=== PATIENT | male | born 1990 | race Caucasian/White ===

== ENCOUNTER 2021-10-22 19:08 | Emergency (ER) | payer SELFPAY ==
[2021-10-22 19:17] VITALS: BP 142/70; PULSE 84; RESP 18; TEMP 36.9; O2SAT 95
[2021-10-22 20:28] LABS: ALT 44 U/L (16-63); AST 18 U/L (15-37); Albumin 4.4 g/dL (3.4-5.0); Alkaline Phosphatase 78 U/L (46-116); Anion Gap 13.6 mmol/L (3-11); BUN 11 mg/dL (7-18); Bilirubin, Total 0.4 mg/dL (0.2-1.0); CO2 22.4 mmol/L (21.0-32.0); CREATININE 0.9 mg/dL (0.70-1.30); Calcium 9.4 mg/dL (8.5-10.1); Chloride 104 mmol/L (98-107); ETHANOL BLOOD 28.9 mg/dL (<10); Glucose 87 mg/dL (74-106); Potassium 3.6 mmol/L (3.5-5.1); Sodium 140 mmol/L (136-145); Total Protein 8.2 g/dL (6.4-8.2)
[2021-10-22 20:31] LABS: Abs Immature Grans 0.02 10^3/uL (0.0-0.06); Absolute Basophil Count 0.03 10^3/uL (0.0-0.2); Absolute Eosinophil Count 0.11 10^3/uL (0.0-0.7); Absolute Lymphocyte Count 2.12 10^3/uL (1.2-3.4); Absolute Monocyte Count 0.49 10^3/uL (0.1-0.8); Absolute Neutrophil Count 6.01 10^3/uL (1.2-6.7); Basophils % 0.3; Eosinophils % 1.3; HCT 45.5 % (40.0-50.0); HGB 15.5 g/dL (13.5-17.5); Immature Grans % 0.2; Lymphocytes % 24.1; MCH 29.4 pg (27.0-33.0); MCHC 34.1 % (32.0-36.0); MCV 86 fL (80-95); Monocytes % 5.6; Neutrophils % 68.5; Platelet Count 281 10^3/uL (130-400); RBC 5.28 10^6/uL (4.36-5.78); RDW 12.8 % (11.8-14.1); RDW-SD 39.8 fL; WBC 8.78 10^3/uL (4.4-10.8)
[2021-10-22 20:46] LABS: *AMPHETAMINES SCREEN URINE Negative (Negative); *BARBITURATES SCREEN URINE Negative (Negative); *BENZODIAZEPINES SCREEN URINE Negative (Negative); Cannabinoids THC Negative (Negative); Cocaine Screen,Urine Negative (Negative); METHADONE URINE SCREEN Negative (Negative); OPIATES URINE SCREEN Negative (Negative)
[2021-10-22 20:51] LABS: Tricyclic Antidepressants Negative (Negative)
[2021-10-22 21:25] LABS: Salicylate < 2.8 mg/dL (<2.8)
[2021-10-22 21:26] LABS: Acetaminophen < 2 ug/mL (10-30)
--- NOTE | 2021-10-22 23:26 | ED.GENADUL_ITS ---
Discharge Plan Disposition Patient Disposition: HOME Condition: Stable Discharge Details Clinical Impression: Depression Primary Care Provider: None,None ED Provider: Boogie Urbina Discharge Instructions Instructions: Depression (ED) Additional Instructions: As per safety plan which you have agreed to, firearms are to remain secured in your home until cleared by a psychiatrist. Please follow-up with [facility] services. Please contact your primary care physician to arrange follow-up. Return to the ER immediately for any worsening or new concerning symptoms. You can always return to the emergency department if you are feeling unsafe and need a safe place to go. Referrals: [facility] [Outside] Discharge Data Discharge Date/Time-TO BE ENTERED AT DEPARTURE: 10/23/21 13:19 Medical Decision Making <FARA Hines - Last Filed: 10/23/21 09:06> Patient is presenting on EEE, he is calm, cooperative, alert, oriented, pleasant in demeanor Family concerning factors are that patient is clearly expressing suicidal ideation last evening and he is not being forthcoming with the [facility] clinician Joi feels patient would benefit from a second certification by psychiatrist, this will be performed and he will be maintained on EEG at this time Patient is agreeable to this plan, he has been calm and cooperative throughout the assessment His diagnostic labs do not show acute abnormality aside from an alcohol level of 28, he is fully alert, oriented, of decisional capacity, he will be maintained on ED until he has formal psychiatric evaluation He will be transition care to my attending physician, Dr. Reyes at time of my departure Gap is mildly elevated, will encourage fluid hydration Medical Records Medical records reviewed: Yes I reviewed the patient's medical records. Lab Data Lab results reviewed: Yes I reviewed the patient's lab results. HPI <FARA Hines - Last Filed: 10/23/21 09:06> General Date/Time Provider Initiated Documentation: 10/22/21 19:28 . HPI Narrative: This 31-year-old gentleman who is otherwise healthy presents for report of suicidal ideation. He reportedly got into an argument with his ex partner and was frustrated, running into the garage and making threatening statements about taking his life. He subsequently made mention that he wrote suicide notes for his children. His ex partner left the home and called the police who presents to the patient's residence and noted a gun in the doorway. Patient made comment that he had numerous other guns and that he did not need that done. He refused because he is in the past and stated that he was going to bed. Please left the scene and were able to transport the patient to the emergency department at time of reassessment. Patient is declining any suicidal ideation or attempts to harm self. He is denying any homicidal ideation, auditory visual hallucinations. He denies regular alcohol consumption, tobacco use, or any illicit drug use. He does not take any medications on a regular basis. He denies any prior hospitalizations. He denies auditory visualizations. Related Data Allergies Allergy/AdvReac Type Severity Reaction Status Date / Time No Known Allergies Allergy Unverified 10/22/21 19:25 General Stated Complaint: PsychEval JACKI: 2 Review of Systems <FARA Hines - Last Filed: 10/23/21 09:06> All systems reviewed & are unremarkable except as noted in HPI and below PFSH <FARA Hines - Last Filed: 10/23/21 09:06> All Active Problems (Updated 10/23/21 @ 12:21 by Boogie Urbina MD) Depression (Chronic) Social History Smoking/Tobacco Use Status: Never Smoking risk assessment performed?: Yes Exam <FARA Hines - Last Filed: 10/23/21 09:06> Const General: cooperative, comfortable and no acute distress Orientation: alert and oriented x3 Eyes Sclera: sclerae normal Pupils: PERRL Resp Effort & Inspection: normal respiratory effort Auscultation: clear to auscultation bilaterally Cardio Rate: regular rate Rhythm: regular rhythm Skin General skin exam: no rashes or lesions noted Neuro General: patient alert and patient oriented x3 Cranial Nerves: CN's II-XI intact bilaterally Extrem General: normal to inspection Psych Appearance: grossly normal and well kempt Mental Status: mental status grossly normal Speech and Movement: speech and movement normal Affect: normal affect Attitude: cooperative Course <FARA Hines - Last Filed: 10/23/21 09:06> Vital Signs Vital signs: Vital Signs Temperature 36.9 C 10/22/21 19:17 Pulse 84 10/22/21 19:17 Respiratory Rate 18 10/22/21 19:17 Blood Pressure 142/70 H 10/22/21 19:17 Pulse Oximetry 95 05/12/22 19:17 Temperature 36.9 C 10/22/21 19:17 Temperature Source Oral 10/22/21 19:17 Pulse 84 10/22/21 19:17 Respiratory Rate 18 10/22/21 19:17 Respiratory Effort 10/22/21 19:26 Blood Pressure 142/70 H 10/22/21 19:17 Blood Pressure Position Sitting 10/22/21 19:17 Pulse Oximetry 95 10/22/21 19:17 Oxygen Delivery Method Room Air 10/22/21 19:17 Oxygen Flow Rate 0 10/22/21 19:17 Pain Level 0 10/22/21 19:17 Lab/Test Results Lab/Test Results: Laboratory Tests Range/Units 10/22/21 10/22/21 10/22/21 20:00 20:00 20:00 WBC (4.4-10.8) 10^3/uL 8.78 RBC (4.36-5.78) 10^6/uL 5.28 Hgb (13.5-17.5) g/dL 15.5 Hct (40.0-50.0) % 45.5 MCV (80-95) fL 86 MCH (27.0-33.0) pg 29.4 MCHC (32.0-36.0) % 34.1 RDW (11.8-14.1) % 12.8 Plt Count (130-400) 10^3/uL 281 MPV (8.0-11.0) fL 10.0 Immature Gran % 0.2 Neutrophils % 68.5 Lymphocytes % 24.1 Monocytes % 5.6 Eosinophils % 1.3 Basophils % 0.3 Nucleated RBC % (0.0-0.3) % 0.0 Absolute Neutrophils (1.2-6.7) 10^3/uL 6.01 Absolute Lymphocytes (1.2-3.4) 10^3/uL 2.12 Absolute Monocytes (0.1-0.8) 10^3/uL 0.49 Absolute Eosinophils (0.0-0.7) 10^3/uL 0.11 Absolute Basophils (0.0-0.2) 10^3/uL 0.03 Sodium (136-145) mmol/L 140 Potassium (3.5-5.1) mmol/L 3.6 Chloride (98-107) mmol/L 104 Carbon Dioxide (21.0-32.0) mmol/L 22.4 Anion Gap (3-11) mmol/L 13.6 H BUN (7-18) mg/dL 11 Creatinine (0.70-1.30) mg/dL 0.9 Estimated GFR/1.73 m2 (mL/min/1.73m2) >= 60.00 Glucose (74-106) mg/dL 87 Calcium (8.5-10.1) mg/dL 9.4 Total Bilirubin (0.2-1.0) mg/dL 0.4 AST (15-37) U/L 18 ALT (16-63) U/L 44 Alkaline Phosphatase (46-116) U/L 78 Total Protein (6.4-8.2) g/dL 8.2 Albumin (3.4-5.0) g/dL 4.4 Salicylates (<2.8) mg/dL Urine Opiates Screen (Negative) Negative Urine Methadone Screen (Negative) Negative Acetaminophen (10-30) ug/mL Ur Barbiturates Screen (Negative) Negative Ur Tricyclics Screen (Negative) Negative Ur Amphetamines Screen (Negative) Negative U Benzodiazepines Scrn (Negative) Negative Urine Cocaine Screen (Negative) Negative Ur THC Screen (Negative) Negative Ethyl Alcohol (<10) mg/dL 28.9 H Range/Units 10/22/21 20:42 WBC (4.4-10.8) 10^3/uL RBC (4.36-5.78) 10^6/uL Hgb (13.5-17.5) g/dL Hct (40.0-50.0) % MCV (80-95) fL MCH (27.0-33.0) pg MCHC (32.0-36.0) % RDW (11.8-14.1) % Plt Count (130-400) 10^3/uL MPV (8.0-11.0) fL Immature Gran % Neutrophils % Lymphocytes % Monocytes % Eosinophils % Basophils % Nucleated RBC % (0.0-0.3) % Absolute Neutrophils (1.2-6.7) 10^3/uL Absolute Lymphocytes (1.2-3.4) 10^3/uL Absolute Monocytes (0.1-0.8) 10^3/uL Absolute Eosinophils (0.0-0.7) 10^3/uL Absolute Basophils (0.0-0.2) 10^3/uL Sodium (136-145) mmol/L Potassium (3.5-5.1) mmol/L Chloride (98-107) mmol/L Carbon Dioxide (21.0-32.0) mmol/L Anion Gap (3-11) mmol/L BUN (7-18) mg/dL Creatinine (0.70-1.30) mg/dL Estimated GFR/1.73 m2 (mL/min/1.73m2) Glucose (74-106) mg/dL Calcium (8.5-10.1) mg/dL Total Bilirubin (0.2-1.0) mg/dL AST (15-37) U/L ALT (16-63) U/L Alkaline Phosphatase (46-116) U/L Total Protein (6.4-8.2) g/dL Albumin (3.4-5.0) g/dL Salicylates (<2.8) mg/dL < 2.8 Urine Opiates Screen (Negative) Urine Methadone Screen (Negative) Acetaminophen (10-30) ug/mL < 2 Ur Barbiturates Screen (Negative) Ur Tricyclics Screen (Negative) Ur Amphetamines Screen (Negative) U Benzodiazepines Scrn (Negative) Urine Cocaine Screen (Negative) Ur THC Screen (Negative) Ethyl Alcohol (<10) mg/dL Sign Out <FARA Hines - Last Filed: 10/23/21 09:06> Sign Out Data: Sign Out Comment: signed out to Dr Cai at 1300 pending second cert EE Last updated by Shannan Beckett PA at 10/23/21 01:08 Sign Out Comment: pending 2nd certification Last updated by Jimmy Cai MD at 10/23/21 07:40 PAWSS <FARA Hines - Last Filed: 10/23/21 09:06> Have you Been Recently Intoxicated or Drunk Within the Last 30 days?: Yes Have you Ever Experienced Previous Episodes of Alcohol Withdrawal?: No Have you ever Experienced Withdrawal Seizures?: No Have you ever Experienced Delirium Tremens(DT)s?: No Have you ever undergone Alcohol Rehabilitation Treatment (i.e, inpt ot outpatient treatment programs)?: No Have you ever Experienced Blackouts?: No Have you ever Combined Alcohol with other Downers within the last 90 days?: No Have you ever Combined Alcohol with any other Substance of Abuse during the last 90 days?: No Positive Blood Alcohol level on Presentation? [PCS.BAL]: No Evidence of Increased Autonomic Activity (i.e. HR>120, tremor, sweating, agitation, nausea)?: No Result: 1 <Boogie Urbina MD - Last Filed: 10/26/21 12:46> Result: 1
--- NOTE | 2021-10-23 06:54 | NUR.NOTE ---
Patient slept comfortably overnight. Will COVID swab when awake. Report given to oncoming nurse Pauline. root
[2021-10-23 08:04] VITALS: BP 150/87; PULSE 107; RESP 18; TEMP 36.5; O2SAT 98
[2021-10-23 08:44] LABS: Source Nasal/Nares
[2021-10-23 09:35] LABS: COVID-19 PCR Negative (Negative)
--- NOTE | 2021-10-23 11:10 | CMSP_ITS ---
- If Service Date Differs Date of service: 10/23/21 Time of Service: 11:10 Care Management Safety Plan Status: Involuntary - Reason for Wait Reason for Wait: Inpatient Admission INVOLUNTARY FOR INPATIENT PSYCHIATRIC STABILIZATION. A huddle is done at 11:[address] Urbina, ED provider, Angelina, nursing janitorial services supervisor, Tamiko, charge nurse, and RACHEL Larry, in attendance. Safety plan has been established to meet the needs of the patient, and consideration of the care team, to adhere to patient goals, identify restrictions based on behavioral status, address nutrition, and determine allo wed personal belongings, tools for hygiene and personal care. Determine level of activity including ambulation, level of supervision, visitors, and determine privileges based on behaviors and level of engagement by pt. SAFETY PLAN: 1. Will remain on SI/HI precautions. In Paper Clothes 2. Will remain in room under direct supervision of one-on-one staff at all times provided by CPSO, ROLF, GLASS PROCESSING WORKER hot wort settler. 3. May have paper cups, plates, finger foods as well as a cardboard spoon with which to eat meals. 4. Follow [facility] Management of the Admitted Behavioral Health Patient policy. 5. Shower with escort and at RN discretion. 6. No personal belongings. 7. Visitors: Per [facility] visitor policy and at RN discretion. 8. Activities: Soft cart items, music tablet, television, and other activities at RN discretion. 9. Bathroom privileges with escort while in the ED. 10. Phone: May use [employer] hospital phone at RN discretion. 11. Due to INVOLUNTARY status, patient is being held at [facility] by the Department of Mental Health ([facility]) until 2nd certification by [facility] Psychiatrist can be performed (within 24 hours). Staff will provide de-escalation support (CPI) as needed. If patient wishes to leave [facility], staff will contact [facility] Crisis Screener ([phone]) and On-Call Chef Broiler Or Fry ([phone]) as soon as possible. In the event of elopement, notify [place] [employer] Police ([phone]). Patient is currently involuntarily at [facility]. [facility] Frontline Blanking Press Operator will continue seeking placement. Please contact the Eyewear Manufacturing Supervisor Chef Broiler Or Fry ([phone]) for any needed changes to Safety Plan. Safety plan has been provided to interdepartmental care team. Patient will be transported by brown sourer at time of discharge.
--- NOTE | 2021-10-23 11:10 | PDOC.CMSAFED ---
- If Service Date Differs Date of service: 10/23/21 Time of Service: 11:10 Care Management Safety Plan Status: Involuntary - Reason for Wait Reason for Wait: Inpatient Admission INVOLUNTARY FOR INPATIENT PSYCHIATRIC STABILIZATION. A huddle is done at 11:[address] Urbina, ED provider, Angelina, nursing millwright supervisor, Tamiko, charge nurse, and RACHEL Larry, in attendance. Safety plan has been established to meet the needs of the patient, and consideration of the care team, to adhere to patient goals, identify restrictions based on behavioral status, address nutrition, and determine allowed personal belongings, tools for hygiene and personal care. Determine level of activity including ambulation, level of supervision, visitors, and determine privileges based on behaviors and level of engagement by pt. SAFETY PLAN: 1. Will remain on SI/HI precautions. In Paper Clothes 2. Will remain in room under direct supervision of one-on-one staff at all times provided by CPSO, ROLF, RADIOLOGY MANAGER administrative operations coordinator. 3. May have paper cups, plates, finger foods as well as a cardboard spoon with which to eat meals. 4. Follow [facility] Management of the Admitted Behavioral Health Patient policy. 5. Shower with escort and at RN discretion. 6. No personal belongings. 7. Visitors: Per [facility] visitor policy and at RN discretion. 8. Activities: Soft cart items, music tablet, television, and other activities at RN discretion. 9. Bathroom privileges with escort while in the ED. 10. Phone: May use [employer] hospital phone at RN discretion. 11. Due to INVOLUNTARY status, patient is being held at [facility] by the Department of Mental Health ([facility]) until 2nd certification by [facility] Psychiatrist can be performed (within 24 hours). Staff will provide de-escalation support (CPI) as needed. If patient wishes to leave [facility], staff will contact [facility] Crisis Screener ([phone]) and On-Call Five Roll Refiner Batch Mixer ([phone]) as soon as possible. In the event of elopement, notify [place] [employer] Police ([phone]). Patient is currently involuntarily at [facility]. [facility] Frontline Chaplain Resident will continue seeking placement. Please contact the Water Hydrant Installer Five Roll Refiner Batch Mixer ([phone]) for any needed changes to Safety Plan. Safety plan has been provided to interdepartmental care team. Patient will be transported by cemetery manager at time of discharge.
--- NOTE | 2021-10-23 12:19 | ED.PROG_ITS ---
Date of service: 10/23/21 Time of Service: 08:00 Medical Decision Making Patient was seen by [facility] crisis screener and felt to be safe for discharge with outpatient follow-up and a safety plan to include patient's friend securing firearms at home. I spoke with the patient -he requests discharge. He is not suicidal on my assessment. I spoke with the patient's friend who has come to the emergency department and agrees to go home with the patient and secure firearms. Both the patient and his friend understand patient should not have access to firearms until cleared by criminal research specialist. I reviewed with the patient that he can always return to the emerge apartment should he be feeling unsafe and I recommended that he follow-up with a primary care physician and [facility]. I have asked care management to assist in arranging outpatient follow-up. Sign Out Sign Out Data: Sign Out Comment: signed out to Dr Cai at 1300 pending second cert EE Last updated by Shannan Beckett PA at 10/23/21 01:08 Sign Out Comment: pending 2nd certification Last updated by Jimmy Cai MD at 10/23/21 07:40 Discharge Plan Disposition Patient Disposition: HOME Condition: Stable Discharge Details Clinical Impression: Depression Primary Care Provider: None,None ED Provider: Boogie Urbina Discharge Instructions Instructions: Depression (ED) Additional Instructions: As per safety plan which you have agreed to, firearms are to remain secured in your home until cleared by a psychiatrist. Please follow-up with [facility] services. Please contact your primary care physician to arrange follow-up. Return to the ER immediately for any worsening or new concerning symptoms. You can always return to the emergency department if you are feeling unsafe and need a safe place to go. [facility] Discharge Data Discharge Date/Time-TO BE ENTERED AT DEPARTURE: 10/23/21 13:19
--- NOTE | 2021-10-23 12:24 | NUR.NOTE ---
Nursing Note: PT INFO GIVEN TO CARE MANAGEMENT TO ESTABLISH PCP AND TO BE SEEN BY STEFFIS FOR DEPRESSION. MARIA C, ED
--- NOTE | 2021-10-23 12:53 | CMPROGNOTE_ITS ---
- If Service Date Differs Date of service: 10/23/21 Time of Service: 12:53 Care Management Progress Note S/O: Slava is pacing in his room when CM comes to meet with him. He is pleasant, polite, and engages in conversation without hesitation. Eye contact is good and speech is of normal rate and volume. He shares he had an argument with his children's mother last evening which led to her calling the police. He adamantly denies having thoughts or an intent to harm himself and says he was in bed sleeping when police showed up at his home for the second time last night. He was subsequently transported to [facility] for a psychiatric evaluation. A: Slava is a 31 year old male who presents in the ED on a Warrant for Emergency Examination on 10/22/2021. P: Slava is assessed by Nabeel [facility] crisis screener, this morning and is deemed safe to return home on a safety plan. Slava is agreeable to having a friend, Robert (tel. # [phone]) secure his firearms. He will follow up with [facility] Emergency Services on an outpatient basis as needed. Slava is discharged home. His friend, Robert, drives him home via private vehicle.
--- NOTE | 2021-10-23 13:00 | PDOC.MHCN_ITS ---
Date of service: 10/23/21 Time of Service: 10:52 Mental Health Crisis Note Presenting Issue How did you arrive at the ED and why did you come: The client was transported to [facility] 10/22 via police on mental health warrant and is seen for follow-up assessment today. According to report client got into a verbal argument with his ex-girlfriend and it was reported that he made suicidal comments which were denied at the time. Precipitating Factors Client denied SI/HI/SIB, intent or plan. No evidence of delusions, hallucinations, or psychotic thought process. Thinking was clear and coherent and client was appropriately responsive. He reported that the incident that occured last night was blown out of proportion and stated today that I love my life and and my children. I wouldn't do anything to hurt myself or anyone else. Disposition BEHAVIOR: Calm, appropriate. EYE CONTACT: Good MOOD: Client reported feeling Alright AFFECT: Euthymic APPETITE: No reported issues SLEEP(trouble falling/staying asleep: No reported issues Plan The client has been calm and cooperative and does not present as an imminent risk to himself or others at this time. Continued need for hospitalization is not indicated and there is insufficient evidence to maintain involuntary status. Crisis bed referral and in-house services through [facility] have been offered and declined. The client has agreed to safety plan home and will contact the agency for additional support as needed. Per condition of discharge, the client's friend Robert Omalley ([phone]) will secure firearms in the home. Plan has been reviewed with attending medical provider Dr. Urbina and clinical care leader Kendy Yeboah. Signature Clinician's Name/Title: Rishi Gordon, [facility] clinician / HP
== END 2021-10-23 13:19 | disposition home or self-care (01) ==
PROVIDERS: Physician Assistant; Emergency Provider Student in an Organized Health Care Education/Training Program
DX: F32.A Depression, unspecified (principal); Z20.822 Contact with and (suspected) exposure to COVID-19
CPT/HCPCS: 80053; 80307; 87635; 99283; 99285; 80320; 80329; 85025

== ENCOUNTER 2022-02-11 16:00 | Outpatient (REF) | payer SELFPAY ==
[2022-02-13 17:11] LABS: Chlamydia Result Negative (Negative); GC Result Negative (Negative)
[2022-02-14 09:40] LABS: HIV-1/2 Ag & Ab Screen Negative (Negative)
[2022-02-15 09:25] LABS: Hepatitis C Ab w Rflx HCV PCR Negative (Negative)
[2022-02-15 09:54] LABS: HBs Antibody, Quant >1000.0 mIU/mL (See Note); Hepatitis B Surface Ab Positive (See Note)
[2022-02-15 10:49] LABS: Syphilis Serology (RPR) Negative (Negative)
== END 2022-02-11 16:01 | disposition home or self-care (01) ==
LOC: LBN 16:00
PROVIDERS: Visit Provider Nurse Practitioner Family
DX: Z11.3 Encounter for screening for infections with a predominantly sexual mode of transmission (principal); Z11.59 Encounter for screening for other viral diseases
CPT/HCPCS: 86706; 86803; 87389; 87491; 87591; 86592